=== PATIENT | female | born 1990 | race American Indian/Alaskan Native ===

== ENCOUNTER 2020-08-04 15:36 | Emergency (ER) | payer OTHER ==
[2020-08-04 15:43] VITALS: BP 116/74
[2020-08-04] MEDS ORDERED: ACETAMINOPHEN W/CODEINE 300-30 MG TAB PO ONE (16:03)
[2020-08-04] MEDS ORDERED: LIDOCAINE (1%) 10 MG/1 ML VIAL 20 ML MDV INFILTRATI ONE (16:21)
[2020-08-04] MEDS ORDERED: LIDOCAINE (2%) 20 MG/1 ML VIAL 20 ML MDV INFILTRATI ONE (16:22)
[2020-08-04] MEDS ORDERED: SODIUM CHLORIDE IRRI 500 ML 500 ML IR ONE (16:23)
--- NOTE | 2020-08-04 16:41 | Emergency Department Report ---
ED General Adult HPI - General Chief complaint: Animal Bite Stated complaint: LT LEG INJURY/DOG BITE Source: patient Mode of arrival: Ambulatory Limitations: No Limitations - History of Present Illness Initial comments: 29-year-old -Citizen Of [place] female patient presents with complaints of dog bite to the right buttock, right thigh, and left lower leg today. Patient states the dog is unknown to her and occurred while walking outside. She states her tetanus vaccine was within the last 5 years. She is currently 8 weeks . No numbness/tingling/weakness in her limbs or difficulty moving her limbs per patient. - Related Data Previous Rx's Medication Instructions Recorded Last Taken Type Acetaminophen/Codeine [Tylenol 1 tab PO Q8H PRN #8 tab 08/04/20 Unknown Rx /Codeine # 3 tab] Amoxicillin/Potassium Clav 1 each PO BID 7 Days #14 tablet 08/04/20 Unknown Rx [Augmentin 875-125 Tablet] Mupirocin [Bactroban 2% OINT] 1 applic TP TID 10 Days #1 tube 08/04/20 Unknown Rx Allergies Allergy/AdvReac Type Severity Reaction Status Date / Time No Known Allergies Allergy Unverified 08/04/20 15:40 ED Review of Systems ROS: Stated complaint: LT LEG INJURY/DOG BITE Other details as noted in HPI Constitutional: denies: chills, diaphoresis, fever, malaise Respiratory: denies: shortness of breath Skin: denies: change in color Neurological: denies: numbness, paresthesias, abnormal gait Hematological/Lymphatic: denies: swollen glands ED Past Medical Hx - Past Medical History Previous Medical History?: No - Social History Smoking Status: Never Smoker Substance Use Type: None - Medications Home Medications: Home Medications Medication Instructions Recorded Confirmed Last Taken Type Acetaminophen/Codeine [Tylenol 1 tab PO Q8H PRN #8 tab 08/04/20 Unknown Rx /Codeine # 3 tab] Amoxicillin/Potassium Clav 1 each PO BID 7 Days #14 tablet 08/04/20 Unknown Rx [Augmentin 875-125 Tablet] Mupirocin [Bactroban 2% OINT] 1 applic TP TID 10 Days #1 tube 08/04/20 Unknown Rx ED Physical Exam - General Limitations: No Limitations General appearance: alert, in no apparent distress - Head Head exam: Present: atraumatic, normocephalic - Eye Eye exam: Present: normal appearance. Absent: scleral icterus - Cardiovascular Cardiovascular Exam: Present: regular rate. Absent: normal rhythm - Extremities Exam Extremities exam: Present: other (Approximately 4 cm linear wound noted to right buttock along with a 2 cm wound to the right buttock; puncture wounds noted to right upper thigh; gaping puncture wounds noted to left posterior calf) - Back Exam Back exam: Present: full ROM - Neurological Exam Neurological exam: Present: alert, oriented X3 - Psychiatric Psychiatric exam: Present: anxious - Skin Skin exam: Present: warm, dry, normal color. Absent: rash ED Course Vital Signs 08/04/20 08/04/20 15:40 18:25 Temperature 98.5 F Pulse Rate 125 H 98 H Respiratory 18 18 Rate Blood Pressure 116/74 O2 Sat by Pulse 99 100 Oximetry - Procedure Description Procedures done: Areas prepped in Betadine. 20 cc of 2% lidocaine without epi used to anesthetize the wounds. Wounds were thoroughly irrigated with a combination of 300 cc of normal saline and Betadine mixture. 3 simple sutures placed in 3 puncture wounds and left posterior calf muscle using Prolene sutures. 2 simple sutures were placed in the 4 cm laceration to right buttock using Prolene sutures. Prolene sutures were also used to place 1 suture in the 2 cm laceration of the right buttock. Wounds were loosely approximated. Patient tolerated procedure well. No immediate complications noted. Minimal bleeding occurred. Wounds were covered in sterile dressings. ED Medical Decision Making - Medical Decision Making 29-year-old -Citizen [place] female patient presents with complaints of dog bite to the right buttock, right thigh, and left lower leg today. Patient states the dog is unknown to her and occurred while walking outside. She states her tetanus vaccine was within the last 5 years. She is currently 8 weeks . No numbness/tingling/weakness in her limbs or difficulty moving her limbs per patient. Wounds were thoroughly irrigated and loosely approximated. Patient given rabies vaccination and immunoglobulin surrounding the wounds and into her left arm. Discussed importance of follow-up with the health department for further rabies vaccination shots. Also discussed wound care and signs and symptoms that should prompt immediate return to the emergency department in detail with patient who verbalized understanding. Patient to start Augmentin today along with mupirocin. Critical care attestation.: If time is entered above; I have spent that time in minutes in the direct care of this critically ill patient, excluding procedure time. ED Disposition Clinical Impression: Dog bite Qualifiers: Encounter type: initial encounter Qualified Code(s): W54.0XXA - Bitten by dog, initial encounter Disposition: TO HOME OR SELFCARE Is pt being admited?: No Condition: Stable Instructions: Animal Bite, Adult Prescriptions: Amoxicillin/Potassium Clav [Augmentin 875-125 Tablet] 1 each PO BID 7 Days #14 tablet Mupirocin [Bactroban 2% OINT] 1 applic TP TID 10 Days #1 tube Acetaminophen/Codeine [Tylenol /Codeine # 3 tab] 1 tab PO Q8H PRN #8 tab PRN Reason: Pain , Severe (7-10) Referrals: [facility] [Provider Group] - 3-5 Days Forms: Work/School Release Form(ED)
[2020-08-04] MEDS ORDERED: WATER FOR IRRIG STERILE 1,000 ML BOTTLE IR ONE (17:00)
[2020-08-04] MEDS ORDERED: RABIES IMMUNE GLOBULIN P/F 300 UNIT/ML INJ 5 ML IM ONE (18:00)
[2020-08-04] MEDS ORDERED: RABIES VACCINE, HUMAN DIPLOID/PF 2.5 UNIT/ML VIAL IM ONE (18:00)
== END 2020-08-04 19:00 | disposition home or self-care (01) ==
LOC: ED 15:36
DX: O26.891 Other specified pregnancy related conditions, first trimester (principal); S71.111A Laceration without foreign body, right thigh, initial encounter; Z3A.08 8 weeks gestation of pregnancy; Z79.2 Long term (current) use of antibiotics; Z79.899 Other long term (current) drug therapy; W54.0XXA Bitten by dog, initial encounter; Y93.89 Activity, other specified; Y92.89 Other specified places as the place of occurrence of the external cause; Y99.8 Other external cause status
CPT/HCPCS: 90375; 90471; 90675; 96372; 99282